=== PATIENT | female | born 1950 | race Caucasian/White ===

== ENCOUNTER 2017-08-09 11:54 | Day surgery (SDC) | payer MEDICARE, BC ==
[~2017-08-09 11:54] MED LIST: Lactated Ringers 1,000 ML IV SCH
--- NOTE | 2017-08-09 13:59 | PCM.PREANE ---
Preanesthetic Assessment - Anesthesia/Transfusion/Family Hx Anesthesia History: Prior Anesthesia Without Reaction Family History of Anesthesia Reaction: No Transfusion History: No Prior Transfusion(s) - Review of Systems General: No Symptoms Pulmonary: No Symptoms Cardiovascular: No Symptoms Gastrointestinal: No Symptoms Neurological: No Symptoms Other: Reports: None - Physical Assessment NPO Status Date: 08/08/17 NPO Status Time: 21:00 O2 Sat by Pulse Oximetry: 98 Respiratory Rate: 16 Vital Signs: Last Vital Signs Temp 36.5 C 08/09/17 12:40 Pulse 68 08/09/17 12:40 Resp 16 08/09/17 12:40 BP 106/59 L 08/09/17 12:40 Pulse Ox 98 08/09/17 12:40 Height: 1.65 m Weight: 49.442 kg ASA Class: 2 Mental Status: Alert & Oriented x3 Airway Class: Mallampati = 1 Dentition: Reports: Normal Dentition ROM/Head Extension: Full Lungs: Clear to Auscultation, Normal Respiratory Effort Cardiovascular: Regular Rate, Regular Rhythm - Lab Values: Laboratory Last Values WBC 6.29 K/uL (4.0-11.0) 08/09/17 13:05 RBC 3.67 M/uL (4.30-5.90) L 08/09/17 13:05 Hgb 11.4 g/dL (12.0-16.0) L 08/09/17 13:05 Hct 34.1 % (36.0-46.0) L 08/09/17 13:05 MCV 92.9 fL (80.0-98.0) 08/09/17 13:05 MCH 31.1 pg (27.0-32.0) 08/09/17 13:05 MCHC 33.4 g/dL (31.0-37.0) 08/09/17 13:05 RDW Std Deviation 56.1 fl (28.0-62.0) 08/09/17 13:05 RDW Coeff of Keshav 17 % (11.0-15.0) H 08/09/17 13:05 Plt Count 342 K/uL (150-400) 08/09/17 13:05 MPV 8.00 fL (7.40-12.00) 08/09/17 13:05 Nucleated RBC % 0.0 /100WBC 08/09/17 13:05 Nucleated RBCs # 0 K/uL 08/09/17 13:05 - Allergies Allergies/Adverse Reactions: Allergies Allergy/AdvReac Type Severity Reaction Status Date / Time No Known Allergies Allergy Verified 08/08/17 11:20 - Anesthesia Plan Pre-Op Medication Ordered: None - Acknowledgements Anesthesia Type Planned: General Anesthesia Pt an Appropriate Candidate for the Planned Anesthesia: Yes Alternatives and Risks of Anesthesia Discussed w Pt/Guardian: Yes Pt/Guardian Understands and Agrees with Anesthesia Plan: Yes Additional Comments: PLAN: GA-LMA PreAnesthesia Questionnaire HEENT History: Reports: Cataract, Macular Degeneration Other HEENT History: wears glasses Cardiovascular History: Reports: Arrhythmia Respiratory History: Reports: Asthma, Other (See Below) Other Respiratory History: Bronchiectosis 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: Musculoskeletal History: Reports: RA Immunologic History: Reports: Immunosuppression Oncologic (Cancer) History: Reports: Breast Dermatologic History: Reports: Eczema - Past Surgical History Respiratory Surgical History: Reports: Lung Resection Other Respiratory Surgeries/Procedures: left lung lobectony Female Surgical History: Reports: Breast Biopsy, Hysterectomy Other Female Surgeries/Procedures: left breast lumpectomy Oncologic Surgical History: Reports: Lumpectomy - SUBSTANCE USE Smoking Status *Q: Never Smoker Recreational Drug Use History: No - HOME MEDS Home Medications: Home Meds Albuterol [IJD: Albuterol HFA] 1 puff INH QID PRN 08/08/17 [History] Budesonide/Formoterol Fumarate [Symbicort 160-4.5 Mcg Inhaler] 2 puff INH BID [History] Cetirizine HCl [Zyrtec] 10 mg PO DAILY 08/08/17 [History] Cholecalciferol (Vitamin D3) [Vitamin D3] 2,000 unit PO DAILY 08/08/17 [History] Folic Acid 1 mg PO DAILY 08/08/17 [History] Leflunomide 20 mg PO ASDIRECTED 08/08/17 [History] Methotrexate Sodium [Methotrexate] 12.5 mg PO ASDIRECTED 08/08/17 [History] predniSONE [Prednisone] 2.5 mg PO WEEKLY 08/08/17 [History] - CURRENT (IN HOUSE) MEDS Current Meds: Current Medications Lactated Ringer's (Ringers, Lactated) 1,000 mls @ 125 mls/hr IV ASDIRECTED ALISSA Last Admin: 08/09/17 12:42 Dose: 125 mls/hr
[2017-08-09] MEDS ORDERED: Octyl 2-Cyanoacrylate 1 Tube ONE (14:43)
[2017-08-09] MEDS ORDERED: Bupivacaine 0.25% 10 ML SDV ONE (14:43)
[2017-08-09] MEDS ORDERED: Lidocaine 1% 20 ML MDV ONE (14:43)
[2017-08-09] MEDS ORDERED: Lidocaine 1% with EPINEPHrine 1:100,000 20 ML MDV ONE (15:01)
[2017-08-09] MEDS ORDERED: Ondansetron 4 MG/2 ML SDV ONE (15:38)
[2017-08-09] MEDS ORDERED: Lidocaine 2% 5 ML SDV ONE (15:38)
[2017-08-09] MEDS ORDERED: Propofol 200 MG/20 ML SDV ONE (15:39)
[2017-08-09] MEDS ORDERED: fentaNYL 250 MCG/5 ML SDV ONE (15:39)
[2017-08-09] MEDS ORDERED: Midazolam 1 MG/ML 2 ML SDV ONE (15:39)
[2017-08-09] MEDS ORDERED: Phenylephrine/Normal Saline 100 MCG/ML 10 ML Syringe ONE (16:05)
[2017-08-09] MEDS ORDERED: ceFAZolin 1 GM Vial ONE ×2 (16:06→16:44)
[2017-08-09] MEDS ORDERED: Sodium Chloride 0.9% 20 ML ONE ×2 (16:06→16:44)
[2017-08-09] MEDS ORDERED: methylPREDNISolone Sodium Succinate 40 MG/1 ML SDV ONE (16:10)
--- NOTE | 2017-08-09 16:24 | PCM.OPNOTE ---
- General Post-Op/Procedure Note Date of Surgery/Procedure: 08/09/17 Operative Procedure(s): marsupialization of Bartholins cyst Findings: 4 cm Bartholins cyst of left labia, clear fluid, smooth wall Pre Op Diagnosis: Bartholins cyst Post-Op Diagnosis: Same Anesthesia Technique: General LMA Primary Surgeon: Melody Mane Anesthesia Provider: Tony Bell Fluid Replacement, Intraop: 700 EBL in mLs: 5 Complications: None known. Condition: Good
[2017-08-09] MEDS ORDERED: Glycopyrrolate 0.2 MG/ML SDV ONE (16:51)
[2017-08-09] MEDS ORDERED: Metoclopramide 10 MG/2 ML SDV IVPUSH ONE (17:32)
--- NOTE | 2017-08-09 17:33 | PCM.POSTAN ---
POST ANESTHESIA ASSESSMENT - MENTAL STATUS Mental Status: Alert, Oriented - RESPIRATORY Respiratory Status: Respiratory Rate WNL, Airway Patent, O2 Saturation Stable - CARDIOVASCULAR CV Status: Pulse Rate WNL, Blood Pressure Stable - GASTROINTESTINAL GI Status: No Symptoms - POST OP HYDRATION Hydration Status: Adequate & Stable
--- NOTE | 2017-08-09 18:08 | PCM48HPAN ---
Post Anesthesia Note - EVALUATION WITHIN 48HRS OF ANESTHETIC Vital Signs in Normal Range: Yes Patient Participated in Evaluation: Yes Respiratory Function Stable: Yes Airway Patent: Yes Cardiovascular Function Stable: Yes Hydration Status Stable: Yes Pain Control Satisfactory: Yes Nausea and Vomiting Control Satisfactory: Yes Mental Status Recovered: Yes - COMMENTS/OBSERVATIONS Free Text/Narrative:: Resolving N/V after zofran intra-op and reglan in phase II. No other complaints are noted.
--- NOTE | 2017-08-09 22:25 | OR ---
SURGEON: Melody Mane M.D. DATE OF PROCEDURE: 08/09/2017 PREOPERATIVE DIAGNOSIS: Bartholin cyst. POSTOPERATIVE DIAGNOSIS: Bartholin cyst. PROCEDURE: Marsupialization of Bartholin cyst. ANESTHESIA: General LMA. ESTIMATED BLOOD LOSS: Less than 5 mL. FLUIDS: 700 mL of crystalloid. FINDINGS: 4 cm cyst in the left labia majora, smooth walled, clear fluid noted. COMPLICATIONS: None known. DISPOSITION: Stable to recovery. BRIEF HISTORY: This is a 67-year-old female, she presents with pain and swelling in the left labia, it has been worsening over the last 2 weeks. No fever. No chills. No abnormal discharge. No warmth to the area. It is very tender and makes it difficult for her to sit. She was offered Word catheter in the clinical or marsupialization in the OR, she desired to proceed with marsupialization with risks discussed including bleeding, infection, injury to surrounding organs, and pain understanding these risks, she does desire to proceed. DESCRIPTION OF PROCEDURE: With the patient in the dorsal lithotomy position under adequate LMA analgesia, the perineum and vagina were prepped with Betadine and draped in usual fashion for vaginal surgery. After an appropriate time-out was held and the patient had received 1 g of Ancef IV, an examination revealed 4 cm mobile cyst at the base of the left labia majora. Medial to the introitus, an incision was made with a 15 blade scalpel and this was approximately 1 cm in length. Clear fluid was noted. The cyst wall was ligated to the vaginal mucosa with multiple interrupted sutures. The area was hemostatic. Final sponge, needle, and instrument counts were reported as correct. There were no known complications. The patient was transferred to recovery in good condition. KEVEN / ROSA /[id number]
== END 2017-08-09 18:00 | disposition home or self-care (01) ==
LOC: MW.SDS 11:54
PROVIDERS: ATTEND Obstetrics & Gynecology
DX: N75.0 Cyst of Bartholin's gland (principal); M06.9 Rheumatoid arthritis, unspecified; G43.909 Migraine, unspecified, not intractable, without status migrainosus; J45.909 Unspecified asthma, uncomplicated; D84.9 Immunodeficiency, unspecified; Z79.52 Long term (current) use of systemic steroids; Z79.51 Long term (current) use of inhaled steroids; Z79.899 Other long term (current) drug therapy; Z85.3 Personal history of malignant neoplasm of breast; Z87.440 Personal history of urinary (tract) infections; Z80.6 Family history of leukemia; Z82.61 Family history of arthritis; Z90.711 Acquired absence of uterus with remaining cervical stump; Z90.2 Acquired absence of lung [part of]; Z90.12 Acquired absence of left breast and nipple; Z98.890 Other specified postprocedural states
CPT/HCPCS: 36415; 56440; 85027; J0690; J2250; J2405; J2920; J3010; J7120; 00940; A9270-GY; J2704